=== PATIENT | male | born 1995 | race Caucasian/White ===

== ENCOUNTER 2025-01-31 22:10 | Emergency (ER) | payer MEDICAID, OTHER ==
[~2025-01-31] VITALS: Ht 193 cm; Wt 100.0 kg
[2025-01-31 22:52] VITALS: O2SAT 99
[2025-02-01] MEDS: IBUPROFEN 800MG TABLET PO ONE (01:50)
[2025-02-01] MEDS ORDERED: IBUP-2030 MT (02:34)
[2025-02-01 02:47] VITALS: BP 140/70; PULSE 81; RESP 18; TEMP 36.7; O2SAT 100
== END 2025-02-01 02:50 | disposition home or self-care (01) ==
LOC: ER 22:10
DX: M25.471 Effusion, right ankle (principal); M79.604 Pain in right leg; Y04.0XXA Assault by unarmed brawl or fight, initial encounter; Y93.89 Activity, other specified; Y92.89 Other specified places as the place of occurrence of the external cause; Y99.8 Other external cause status
CPT/HCPCS: 73590; 73610; 99284